=== PATIENT | male | born 1995 | race African-American/Black ===

== ENCOUNTER 2018-07-09 00:04 | Emergency (ER) | payer SELFPAY ==
[~2018-07-09] VITALS: Ht 188 cm; Wt 67.1 kg
[2018-07-09 00:18] VITALS: Ht 188 cm; Wt 67.1 kg
[2018-07-09 01:29] VITALS: BP 138/84
== END 2018-07-09 01:29 | disposition home or self-care (01) ==
LOC: ED 00:04
DX: K21.9 Gastro-esophageal reflux disease without esophagitis (principal); Z88.0 Allergy status to penicillin

== ENCOUNTER 2018-07-09 02:53 | Emergency (ER) | payer SELFPAY ==
[~2018-07-09] VITALS: Ht 188 cm; Wt 30.1 kg
[2018-07-09 02:59] VITALS: Ht 188 cm; Wt 30.1 kg
[2018-07-09 04:01] LABS: BASOPHIL % 0.3 % (0-2); CALCIUM 9.4 mg/dL (8.5-10.1); CARBON DIOXIDE 29.5 mmol/L (21-32); CHLORIDE SERUM 102 mmol/L (98-107); CREATININE SERUM 1.1 mg/dL (0.7-1.3); GFR1 > 60 mL/min; GLUCOSE SERUM 100 mg/dL (74-106); PLATELET COUNT 270 x10^3mcL (130-400); POTASSIUM SERUM 3.6 mmol/L (3.5-5.1); RED CELL DISTRIBUTION WIDTH 11.9 % (11.5-14.5); SODIUM SERUM 140 mmol/L (136-145)
[2018-07-09 04:05] LABS: ALBUMIN 4.6 g/dL (3.4-5.0); ALKALINE PHOSPHATASE 46 U/L (46-116); ALT/SGPT 41 U/L (16-63); AST/SGOT 21 U/L (15-37); BILIRUBIN TOTAL 1.5 mg/dL (0.20-1.00); LIPASE 114 IU/L (73-393)
[2018-07-09 04:09] LABS: TOTAL PROTEIN, SERUM 8.4 g/dL (6.4-8.2)
[2018-07-09 05:24] VITALS: BP 111/71
== END 2018-07-09 05:24 | disposition home or self-care (01) ==
LOC: ED 02:53
PROVIDERS: Emergency Medicine
DX: K21.9 Gastro-esophageal reflux disease without esophagitis (principal); Z88.0 Allergy status to penicillin
CPT/HCPCS: 36415